=== PATIENT | female | born 1985 | race Caucasian/White ===

== ENCOUNTER 2016-09-10 07:01 | Emergency (ER) | payer OTHER ==
[~2016-09-10] VITALS: Ht 160 cm; Wt 70.3 kg
[2016-09-10 09:08] VITALS: BP 120/74
== END 2016-09-10 09:08 | disposition home or self-care (01) ==
LOC: ED 07:01
DX: K29.70 Gastritis, unspecified, without bleeding (principal); R19.7 Diarrhea, unspecified; F17.210 Nicotine dependence, cigarettes, uncomplicated; R03.0 Elevated blood-pressure reading, without diagnosis of hypertension

== ENCOUNTER 2016-10-24 01:40 | Emergency (ER) | payer OTHER ==
[2016-10-24 03:47] LABS: BASOPHIL % 0.6 % (0-2); PLATELET COUNT 325 x10^3mcL (130-400); RED CELL DISTRIBUTION WIDTH 13.9 % (11.5-14.5)
[2016-10-24 04:21] LABS: CALCIUM 12.1 mg/dL (8.5-10.1); CARBON DIOXIDE 31.7 mmol/L (21-32); CHLORIDE SERUM 100 mmol/L (98-107); CREATININE SERUM 0.9 mg/dL (0.6-1.0); GFR1 > 60 mL/min; GLUCOSE SERUM 132 mg/dL (74-106); POTASSIUM SERUM 3.2 mmol/L (3.5-5.1); SODIUM SERUM 138 mmol/L (136-145)
[2016-10-24 04:25] LABS: ALBUMIN 4.1 g/dL (3.4-5.0); ALKALINE PHOSPHATASE 85 U/L (46-116); ALT/SGPT 19 U/L (14-59); AMYLASE 91 U/L (25-115); AST/SGOT 14 U/L (15-37); BILIRUBIN TOTAL 0.53 mg/dL (0.20-1.00); LIPASE 87 IU/L (73-393)
[2016-10-24 06:29] VITALS: BP 95/55
== END 2016-10-24 06:29 | disposition home or self-care (01) ==
LOC: ED 01:40
PROVIDERS: Emergency Medicine Emergency Medical Services
DX: K21.9 Gastro-esophageal reflux disease without esophagitis (principal); K80.50 Calculus of bile duct without cholangitis or cholecystitis without obstruction; K29.71 Gastritis, unspecified, with bleeding; R19.7 Diarrhea, unspecified
CPT/HCPCS: J2270; J2405; J3490; J7030; Q0092

== ENCOUNTER 2016-12-15 12:16 | Emergency (ER) | payer OTHER ==
[~2016-12-15] VITALS: Ht 157.5 cm; Wt 63.5 kg
[2016-12-15 13:02] LABS: BASOPHIL % 0.4 % (0-2); PLATELET COUNT 370 x10^3mcL (130-400); RED CELL DISTRIBUTION WIDTH 13.6 % (11.5-14.5)
[2016-12-15 13:50] LABS: CALCIUM 11.8 mg/dL (8.5-10.1); CHLORIDE SERUM 99 mmol/L (98-107); CREATININE SERUM 0.9 mg/dL (0.6-1.0); GFR1 > 60 mL/min; GLUCOSE SERUM 159 mg/dL (74-106); POTASSIUM SERUM 3.6 mmol/L (3.5-5.1); SODIUM SERUM 135 mmol/L (136-145)
[2016-12-15 13:54] LABS: ALBUMIN 4.1 g/dL (3.4-5.0); ALKALINE PHOSPHATASE 92 U/L (46-116); ALT/SGPT 24 U/L (14-59); AMYLASE 67 U/L (25-115); AST/SGOT 18 U/L (15-37); BILIRUBIN TOTAL 0.4 mg/dL (0.20-1.00); LIPASE 64 IU/L (73-393)
[2016-12-15 13:59] LABS: TOTAL PROTEIN, SERUM 8.3 g/dL (6.4-8.2)
[2016-12-15 15:02] VITALS: BP 129/77
== END 2016-12-15 15:02 | disposition home or self-care (01) ==
LOC: ED 12:16
PROVIDERS: Emergency Medicine
DX: K52.9 Noninfective gastroenteritis and colitis, unspecified (principal); Z87.19 Personal history of other diseases of the digestive system
CPT/HCPCS: 83880; J1885; J2405; J7030

== ENCOUNTER 2016-12-16 03:04 | Emergency (ER) | payer OTHER ==
[2016-12-16 05:23] VITALS: BP 119/66
== END 2016-12-16 05:23 | disposition home or self-care (01) ==
LOC: ED 03:04
DX: R10.30 Lower abdominal pain, unspecified (principal); R11.10 Vomiting, unspecified; R19.7 Diarrhea, unspecified
CPT/HCPCS: J1885; J2405; J7030

== ENCOUNTER 2016-12-17 20:56 | Inpatient (IN) | payer OTHER ==
[~2016-12-17] VITALS: Ht 157.5 cm; Wt 65.2 kg
[2016-12-17 22:14] LABS: BASOPHIL % 0.2 % (0-2); PLATELET COUNT 344 x10^3mcL (130-400); RED CELL DISTRIBUTION WIDTH 12.9 % (11.5-14.5)
[2016-12-17 22:29] LABS: ALBUMIN 3.7 g/dL (3.4-5.0); ALKALINE PHOSPHATASE 82 U/L (46-116); ALT/SGPT 21 U/L (14-59); AMYLASE 125 U/L (25-115); AST/SGOT 14 U/L (15-37); BILIRUBIN TOTAL 0.4 mg/dL (0.20-1.00); CARBON DIOXIDE 36.2 mmol/L (21-32); CHLORIDE SERUM 96 mmol/L (98-107); CREATININE SERUM 0.9 mg/dL (0.6-1.0); GFR1 > 60 mL/min; GLUCOSE SERUM 173 mg/dL (74-106); LIPASE 83 IU/L (73-393); SODIUM SERUM 137 mmol/L (136-145); TOTAL PROTEIN, SERUM 7.4 g/dL (6.4-8.2)
[2016-12-17 22:38] LABS: CALCIUM 11.6 mg/dL (8.5-10.1)
[2016-12-17 22:43] LABS: POTASSIUM SERUM 2.3 mmol/L (3.5-5.1)
[2016-12-17 22:51] LABS: microscopic required? YES; urine erythrocyte TRACE (NEGATIVE)
[2016-12-17 23:09] LABS: AMPHETAMINE QUAL UR NONE DETECTED (NEG <=1000)
[2016-12-18 02:41] VITALS: BP 112/69
[2016-12-18 03:20] LABS: MAGNESIUM 1.6 mg/dL (1.8-2.4); PHOSPHOROUS 2.8 mg/dL (2.5-4.9)
[2016-12-18 03:28] LABS: T3 TOTAL 1.5 ng/mL
[2016-12-18 03:37] LABS: FREE T4 1.37 ng/dL (0.76-1.46); FREE THYROXINE INDEX 4.4 ug/dL (1.4-4.5); T4(THYROXINE) 12.1 ug/dL (4.7-13.3)
[2016-12-18 03:39] LABS: CHOLESTEROL/HDL RATIO 2.2
[2016-12-18 05:22] VITALS: BP 99/54
[2016-12-18 07:13] LABS: CALCIUM 10.7 mg/dL (8.5-10.1); CARBON DIOXIDE 30.6 mmol/L (21-32); CHLORIDE SERUM 104 mmol/L (98-107); CREATININE SERUM 0.8 mg/dL (0.6-1.0); GFR1 > 60 mL/min; GLUCOSE SERUM 97 mg/dL (74-106); SODIUM SERUM 143 mmol/L (136-145)
[2016-12-18 07:18] LABS: POTASSIUM SERUM 2.9 mmol/L (3.5-5.1)
[2016-12-18 08:47] VITALS: BP 125/81
[2016-12-18 11:03] LABS: CALCIUM 10.9 mg/dL (8.5-10.1); CARBON DIOXIDE 31.2 mmol/L (21-32); CHLORIDE SERUM 103 mmol/L (98-107); CREATININE SERUM 0.8 mg/dL (0.6-1.0); GFR1 > 60 mL/min; GLUCOSE SERUM 98 mg/dL (74-106); MAGNESIUM 2.3 mg/dL (1.8-2.4); SODIUM SERUM 139 mmol/L (136-145)
[2016-12-18 11:45] VITALS: BP 115/79
[2016-12-18 16:23] VITALS: BP 143/91
[2016-12-18 21:22] VITALS: BP 129/94
[2016-12-19 00:29] LABS: CALCIUM 11.5 mg/dL (8.5-10.1); CARBON DIOXIDE 31.3 mmol/L (21-32); CHLORIDE SERUM 105 mmol/L (98-107); CREATININE SERUM 0.7 mg/dL (0.6-1.0); GFR1 > 60 mL/min; GLUCOSE SERUM 121 mg/dL (74-106); POTASSIUM SERUM 3.2 mmol/L (3.5-5.1); SODIUM SERUM 141 mmol/L (136-145)
[2016-12-19 04:53] VITALS: BP 139/87
[2016-12-19 06:34] LABS: CALCIUM 10.9 mg/dL (8.5-10.1); CARBON DIOXIDE 25.3 mmol/L (21-32); CHLORIDE SERUM 106 mmol/L (98-107); CREATININE SERUM 0.7 mg/dL (0.6-1.0); GFR1 > 60 mL/min; GLUCOSE SERUM 101 mg/dL (74-106); POTASSIUM SERUM 3.2 mmol/L (3.5-5.1); SODIUM SERUM 139 mmol/L (136-145)
[2016-12-19 06:40] LABS: BASOPHIL % 0.2 % (0-2); PLATELET COUNT 298 x10^3mcL (130-400); RED CELL DISTRIBUTION WIDTH 13.5 % (11.5-14.5)
[2016-12-19 09:39] VITALS: BP 123/73
[2016-12-19 12:31] VITALS: BP 147/97
[2016-12-19 16:30] VITALS: BP 139/84
[2016-12-19 21:48] VITALS: BP 118/70
[2016-12-20 05:46] VITALS: BP 136/86
[2016-12-20 06:09] LABS: BASOPHIL % 0.4 % (0-2); PLATELET COUNT 289 x10^3mcL (130-400); RED CELL DISTRIBUTION WIDTH 13.7 % (11.5-14.5)
[2016-12-20 06:22] LABS: CALCIUM 11.2 mg/dL (8.5-10.1); CHLORIDE SERUM 99 mmol/L (98-107); CREATININE SERUM 0.9 mg/dL (0.6-1.0); GFR1 > 60 mL/min; GLUCOSE SERUM 124 mg/dL (74-106); SODIUM SERUM 140 mmol/L (136-145)
[2016-12-20 06:50] LABS: POTASSIUM SERUM 2.5 mmol/L (3.5-5.1)
[2016-12-20 10:20] VITALS: BP 148/88
[2016-12-20 14:20] VITALS: BP 115/83
[2016-12-20] MEDS ORDERED: LEVAQUIN750 MG PO (17:26)
[2016-12-20] MEDS ORDERED: COL100 PO (17:27)
[2016-12-20] MEDS ORDERED: SIMETHICONE80 MG CH (17:27)
[2016-12-20] MEDS ORDERED: ZOFI IV (17:28)
[2016-12-20] MEDS ORDERED: PROTONIX40 MG PO (17:29)
[2016-12-20 17:30] VITALS: BP 144/79
[2016-12-20] MEDS ORDERED: [UNRECOGNIZED DRUG - CODE] IM (17:30)
[2016-12-20] MEDS ORDERED: LEV250PM IV (17:56)
[2016-12-20] MEDS ORDERED: LAC PO (17:57)
[2016-12-20 18:02] VITALS: BP 115/83
[2016-12-21 12:21] LABS: calcium (part of PTHIC) 11.5 mg/dL (8.7-10.2)
== END 2016-12-20 19:43 | disposition short-term general hospital (02) | DRG 871 ==
LOC: ED 20:56 → DU 12-18 00:54 → MU 12-18 00:54 → DU 12-18 01:51 → MU 12-20 01:25 → DU 12-20 11:07
PROVIDERS: Emergency Medicine; Internal Medicine Gastroenterology; ADMIT Family Medicine
PROC: 0DB98ZX Excision of Duodenum, Via Natural or Artificial Opening Endoscopic, Diagnostic (ICD-10-PCS; principal; 2016-12-20 09:30)
DX: A41.9 Sepsis, unspecified organism (principal); N17.0 Acute kidney failure with tubular necrosis; K29.70 Gastritis, unspecified, without bleeding; E87.6 Hypokalemia; E86.0 Dehydration; F12.10 Cannabis abuse, uncomplicated; E87.8 Other disorders of electrolyte and fluid balance, not elsewhere classified; E83.52 Hypercalcemia; R80.9 Proteinuria, unspecified; N20.0 Calculus of kidney
CPT/HCPCS: 43235; 82941; 83880; 84439; 87046; 87046-59; C9113; J1200; J1610; J1885; J1956; J2250; J2270; J2310; J2405; J2765; J3010; J3475; J3480; J3490; J7030; J7050; Q0092

== ENCOUNTER 2017-05-23 06:28 | Inpatient (IN) | payer OTHER ==
[~2017-05-23] VITALS: Ht 157.5 cm; Wt 65.3 kg
[~2017-05-23 06:28] MED LIST: COL100 PO; LAC PO; LEV250PM IV; LEVAQUIN750 MG PO; PROTONIX40 MG PO; SIMETHICONE80 MG CH; ZOFI IV; [UNRECOGNIZED DRUG - CODE] IM
[2017-05-23 06:35] VITALS: Ht 157.5 cm; Wt 65.3 kg
[2017-05-23 07:37] LABS: BASOPHIL % 0.4 % (0-2)
[2017-05-23 07:38] LABS: ALKALINE PHOSPHATASE 76 U/L (46-116); ALT/SGPT 32 U/L (14-59); AST/SGOT 23 U/L (15-37); BILIRUBIN TOTAL 0.4 mg/dL (0.20-1.00); CALCIUM 11.7 mg/dL (8.5-10.1); CARBON DIOXIDE 33.5 mmol/L (21-32); CHLORIDE SERUM 96 mmol/L (98-107); CREATININE SERUM 0.9 mg/dL (0.6-1.0); GFR1 > 60 mL/min; GLUCOSE SERUM 162 mg/dL (74-106); LIPASE 82 IU/L (73-393); SODIUM SERUM 137 mmol/L (136-145); TOTAL PROTEIN, SERUM 7.8 g/dL (6.4-8.2)
[2017-05-23 07:39] LABS: PLATELET COUNT 405 x10^3mcL (130-400); RED CELL DISTRIBUTION WIDTH 15.2 % (11.5-14.5)
[2017-05-23 07:51] LABS: POTASSIUM SERUM 2.9 mmol/L (3.5-5.1)
[2017-05-23 09:27] LABS: MAGNESIUM 1.9 mg/dL (1.8-2.4); PHOSPHOROUS 2.9 mg/dL (2.5-4.9)
[2017-05-23 09:32] LABS: T3 TOTAL 1.25 ng/mL
[2017-05-23 09:34] LABS: CHOLESTEROL/HDL RATIO 2.2
[2017-05-23 10:48] LABS: FREE T4 1.35 ng/dL (0.76-1.46); FREE THYROXINE INDEX 4.3 ug/dL (1.4-4.5); T4(THYROXINE) 12.6 ug/dL (4.7-13.3)
[2017-05-23 12:55] VITALS: BP 109/65
[2017-05-23 12:57] LABS: CALCIUM 11.4 mg/dL (8.5-10.1); CARBON DIOXIDE 30.2 mmol/L (21-32); CHLORIDE SERUM 103 mmol/L (98-107); CREATININE SERUM 0.8 mg/dL (0.6-1.0); GFR1 > 60 mL/min; GLUCOSE SERUM 126 mg/dL (74-106); POTASSIUM SERUM 3.2 mmol/L (3.5-5.1); SODIUM SERUM 142 mmol/L (136-145)
[2017-05-23 12:59] VITALS: BP 122/65
[2017-05-23 14:18] VITALS: BP 107/67
[2017-05-23 17:53] VITALS: BP 136/77
[2017-05-23] MEDS ORDERED: CARAFATE1 GM PO (18:57)
[2017-05-23 20:12] VITALS: BP 140/77
[2017-05-24 04:57] VITALS: BP 125/82
[2017-05-24 06:23] LABS: CALCIUM 11.4 mg/dL (8.5-10.1); CARBON DIOXIDE 31.3 mmol/L (21-32); CHLORIDE SERUM 100 mmol/L (98-107); CREATININE SERUM 0.7 mg/dL (0.6-1.0); GFR1 > 60 mL/min; GLUCOSE SERUM 115 mg/dL (74-106); SODIUM SERUM 140 mmol/L (136-145)
[2017-05-24 06:32] LABS: POTASSIUM SERUM 2.7 mmol/L (3.5-5.1)
[2017-05-24 06:38] LABS: BASOPHIL % 0.4 % (0-2)
[2017-05-24 07:04] LABS: PLATELET COUNT 409 x10^3mcL (130-400); RED CELL DISTRIBUTION WIDTH 15.2 % (11.5-14.5)
[2017-05-24 08:55] VITALS: BP 140/99
[2017-05-24 15:10] LABS: CARBON DIOXIDE 30.6 mmol/L (21-32); CHLORIDE SERUM 101 mmol/L (98-107); CREATININE SERUM 0.8 mg/dL (0.6-1.0); GFR1 > 60 mL/min; GLUCOSE SERUM 104 mg/dL (74-106); POTASSIUM SERUM 3.4 mmol/L (3.5-5.1); SODIUM SERUM 139 mmol/L (136-145)
[2017-05-24 17:28] VITALS: BP 127/90
[2017-05-24 20:25] VITALS: BP 136/81
[2017-05-24 20:28] LABS: CALCIUM 10.9 mg/dL (8.5-10.1); CHLORIDE SERUM 100 mmol/L (98-107); CREATININE SERUM 0.8 mg/dL (0.6-1.0); GFR1 > 60 mL/min; GLUCOSE SERUM 119 mg/dL (74-106); SODIUM SERUM 141 mmol/L (136-145)
[2017-05-24 20:29] LABS: POTASSIUM SERUM 2.7 mmol/L (3.5-5.1)
[2017-05-25 02:32] LABS: CALCIUM 11.9 mg/dL (8.5-10.1); CARBON DIOXIDE 31.4 mmol/L (21-32); CHLORIDE SERUM 102 mmol/L (98-107); CREATININE SERUM 0.9 mg/dL (0.6-1.0); GFR1 > 60 mL/min; GLUCOSE SERUM 128 mg/dL (74-106); POTASSIUM SERUM 3.3 mmol/L (3.5-5.1); SODIUM SERUM 143 mmol/L (136-145)
[2017-05-25 06:13] VITALS: BP 135/89
[2017-05-25 06:56] LABS: RED CELL DISTRIBUTION WIDTH 14.4 % (11.5-14.5)
[2017-05-25 07:05] LABS: CALCIUM 11.5 mg/dL (8.5-10.1); CARBON DIOXIDE 27.1 mmol/L (21-32); CHLORIDE SERUM 102 mmol/L (98-107); CREATININE SERUM 0.7 mg/dL (0.6-1.0); GFR1 > 60 mL/min; GLUCOSE SERUM 117 mg/dL (74-106); SODIUM SERUM 140 mmol/L (136-145)
[2017-05-25 07:20] LABS: PLATELET COUNT 413 x10^3mcL (130-400)
[2017-05-25 08:08] VITALS: BP 135/93
[2017-05-25 10:57] LABS: BAND NEUTROPHIL 0 % (0-10); BASOPHIL 0 % (0-2); MONOCYTE 7 % (0-7); SEGMENTED NEUTROPHILS 87 % (37-75)
[2017-05-25 11:24] LABS: PLATELET COUNT 418 x10^3mcL (130-400); RED CELL DISTRIBUTION WIDTH 15.2 % (11.5-14.5)
[2017-05-25 11:46] LABS: BAND NEUTROPHIL 0 % (0-10); BASOPHIL 0 % (0-2); MONOCYTE 8 % (0-7); SEGMENTED NEUTROPHILS 88 % (37-75)
[2017-05-25 12:30] LABS: UA SPECIFIC GRAVITY 1.015 (1.005-1.035); microscopic required? YES; urine erythrocyte 2+ (NEGATIVE)
[2017-05-25 17:38] VITALS: BP 122/91
[2017-05-25 19:58] LABS: CALCIUM 12.1 mg/dL (8.5-10.1); CARBON DIOXIDE 31.8 mmol/L (21-32); CHLORIDE SERUM 100 mmol/L (98-107); CREATININE SERUM 0.8 mg/dL (0.6-1.0); GFR1 > 60 mL/min; GLUCOSE SERUM 132 mg/dL (74-106); POTASSIUM SERUM 3.2 mmol/L (3.5-5.1); SODIUM SERUM 137 mmol/L (136-145)
[2017-05-25 20:36] VITALS: BP 127/92
[2017-05-26 06:32] VITALS: BP 143/99
[2017-05-26 07:00] LABS: BASOPHIL % 0 % (0-2); PLATELET COUNT 405 x10^3mcL (130-400); RED CELL DISTRIBUTION WIDTH 14.8 % (11.5-14.5)
[2017-05-26 07:05] LABS: CALCIUM 11.5 mg/dL (8.5-10.1); CARBON DIOXIDE 30.6 mmol/L (21-32); CHLORIDE SERUM 101 mmol/L (98-107); CREATININE SERUM 0.7 mg/dL (0.6-1.0); GFR1 > 60 mL/min; GLUCOSE SERUM 112 mg/dL (74-106); PHOSPHOROUS 2.5 mg/dL (2.5-4.9); SODIUM SERUM 138 mmol/L (136-145)
[2017-05-26 07:16] LABS: POTASSIUM SERUM 2.9 mmol/L (3.5-5.1)
[2017-05-26 09:23] VITALS: BP 139/95
[2017-05-26 14:56] LABS: CALCIUM 11.2 mg/dL (8.5-10.1); CARBON DIOXIDE 32.4 mmol/L (21-32); CHLORIDE SERUM 100 mmol/L (98-107); CREATININE SERUM 0.7 mg/dL (0.6-1.0); GFR1 > 60 mL/min; GLUCOSE SERUM 110 mg/dL (74-106); POTASSIUM SERUM 3.2 mmol/L (3.5-5.1); SODIUM SERUM 137 mmol/L (136-145)
[2017-05-26] MEDS ORDERED: PHE25I PO (15:23)
[2017-05-26 17:31] VITALS: BP 138/91
== END 2017-05-26 20:29 | disposition left against medical advice (07) | DRG 438 ==
LOC: ED 06:28 → MU 08:08 → DU 08:08 → MU 05-24 09:59
PROVIDERS: Emergency Medicine; Family Medicine
DX: D13.6 Benign neoplasm of pancreas (principal); N17.0 Acute kidney failure with tubular necrosis; E87.5 Hyperkalemia; E87.6 Hypokalemia; Z68.27 Body mass index [BMI] 27.0-27.9, adult; F17.210 Nicotine dependence, cigarettes, uncomplicated; K26.9 Duodenal ulcer, unspecified as acute or chronic, without hemorrhage or perforation; E21.3 Hyperparathyroidism, unspecified; D47.3 Essential (hemorrhagic) thrombocythemia; F12.10 Cannabis abuse, uncomplicated; D25.9 Leiomyoma of uterus, unspecified
CPT/HCPCS: 83880; 84439; J1956; J2060; J2543; J2550; J2765; J3475; J3480; J3490; J7030; J8597; Q0092; Q0162; Q9967

== ENCOUNTER 2018-11-05 08:54 | Inpatient (IN) | payer OTHER ==
[~2018-11-05] VITALS: Ht 157.5 cm; Wt 65.8 kg
[~2018-11-05 08:54] MED LIST changes: +CARAFATE1 GM PO; +PHE25I PO
[2018-11-05 09:09] VITALS: Ht 157.5 cm; Wt 65.8 kg
--- NOTE | 2018-11-05 09:17 | NUR ---
PT BIB SELF C/C ABD PAIN STS STARTED THIS AM AWAITING FOR DR TONIE TERESA
--- NOTE | 2018-11-05 10:18 | NUR ---
DR PEACE AT BEDSIDE TO [facility]
--- NOTE | 2018-11-05 10:24 | NUR ---
E PLEASE ENTER FULL NAMES OF PIPE BOWLS PAINT TRIMMER/RN Patient data collected by (PIPE BOWLS PAINT TRIMMER):KONSTANTIN Assessment reviewed and completed by (RN):CARLOS
--- NOTE | 2018-11-05 10:39 | NUR ---
C/O ABDOMIANL PAIN MEDICATED ORDERF
--- NOTE | 2018-11-05 10:39 | NUR ---
PLEASE ENTER FULL NAMES OF CAMP DISHWASHER/RN Patient data collected by (CAMP DISHWASHER):Robert PRYOR Assessment reviewed and completed by (RN): RICKY
--- NOTE | 2018-11-05 10:52 | NUR ---
PT TAKEN TO RADIOLOGY FOR XRAY
[2018-11-05 11:06] LABS: microscopic required? YES; urine erythrocyte TRACE (NEGATIVE)
[2018-11-05 11:07] LABS: BASOPHIL % 0.2 % (0-2)
[2018-11-05 11:08] LABS: PLATELET COUNT 415 x10^3mcL (130-400); RED CELL DISTRIBUTION WIDTH 36.2 % (11.5-14.5)
[2018-11-05 11:16] LABS: CALCIUM 9.3 mg/dL (8.5-10.1); CARBON DIOXIDE 20.2 mmol/L (21-32); CHLORIDE SERUM 104 mmol/L (98-107); CREATININE SERUM 0.6 mg/dL (0.6-1.0); GFR1 > 60 mL/min; GLUCOSE SERUM 223 mg/dL (74-106); POTASSIUM SERUM 4.6 mmol/L (3.5-5.1); SODIUM SERUM 136 mmol/L (136-145)
[2018-11-05 11:27] LABS: ALBUMIN 3.9 g/dL (3.4-5.0); ALKALINE PHOSPHATASE 107 U/L (46-116); ALT/SGPT 30 U/L (14-59); AST/SGOT 26 U/L (15-37); BILIRUBIN TOTAL 0.4 mg/dL (0.20-1.00); TOTAL PROTEIN, SERUM 7.8 g/dL (6.4-8.2)
[2018-11-05 11:28] LABS: LIPASE 1823 IU/L (73-393)
[2018-11-05 11:28] LABS: AMPHETAMINE QUAL UR NONE DETECTED (See below)
[2018-11-05 12:09] LABS: rbc morphology (normal/abnorm) ABNORMAL (NORMAL); target cell (codocyte) 1+; tear drop cell (dacryocyte) 1+
--- NOTE | 2018-11-05 12:50 | NUR ---
PT ARRIVED FROM ED IN A W/C. REPORT GIVEN BY BRIAN MUÑOZ. PT IS ADMITTED WITH DX OF PANCRATITIS. WILL REMAIN NPO AT THIS TIME. RESP EVEN AND UNLABORED. LUNG SOUNDS CTA BILATERALLY. ON R/A. NO COUGH OR SOB NOTED. NORMAL S1S2 NOTED. DENIES C/P, PRESSURE, PALPITATIONS. ABDOMEN SOFT, ROUND, TENDER, NONDISTENDED. BOWEL SOUNDS ACTIVE X4 QUADS. PT DENIES AB PAIN, N/V AT THIS TIME, BUT STATES PRIOR TO BEING ADMITTED WAS NAUSEATED WITH VOMITING. SKIN CDI. NO EDEMA NOTED. IV CATH TO LAC 20G. SITE WNL. N/S LOCKED AT THIS TIME. PT EDUCATED TO ROOM AND CALL LIGHT. DENIES PAIN A THIS TIME. CALL LIGHT WITHIN REACH
[2018-11-05 12:52] VITALS: BP 134/77
--- NOTE | 2018-11-05 13:37 | NUR ---
RECEIVED ORDER FROM DR. ARRIOLA MRSA CULTURE AND NPO EXCEPT MED. ORDER NOTED AND CARRIED OUT. PT MADE AWARE.
--- NOTE | 2018-11-05 14:52 | NUR ---
MORPHINE 1 MG IVP GIVEN FOR ABDOMEN PAIN 10/03. RESP EVEN AND UNLABORED. NO DISTRESS NOTED. WILL CONTINUE TO MONITOR.
--- NOTE | 2018-11-05 15:28 | NUR ---
LEVAQUIN IVPB STARTED. PT DEINES PAIN AT THIS TIME. RESP EVEN AND UNLABORED. NO DISTRESS NOTED. PT SIGNIFICANT OTHER AT BEDSIDE.
--- NOTE | 2018-11-05 16:00 | NUR ---
RECEIVED ORDER FOR DR. ARRIOLA, SCDS. ORDER NOTED AND CARRIED OUT, PT MADE AWARE.
--- NOTE | 2018-11-05 17:01 | NUR ---
DUE MEDS GIVEN AND TOLERATED WELL. PT EDUCATED THAT SHE WILL REMAIN NPO UNTIL HER CONSULT WITH DR. GORE. RESP EVEN AND UNLABORED. NO DISTRESS NOTED. PT DENIES PAIN AT THIS TIME. CALL LIGHT WITHIN REACH.
[2018-11-05 17:24] VITALS: BP 137/72
--- NOTE | 2018-11-05 18:43 | NUR ---
PT IS AAOX4. RESP EVEN AND UNLABORED. NO DISTRESS NOTED. PT DENIES PAIN. IV CATH N/S LOCKED TO LAC. SITE WNL. PT IS MAINTAINING NPO STATUS AWAITING DR. GORE CONSULT. WILL ENDORSE ALL CARE TO NOC RN.
--- NOTE | 2018-11-05 19:30 | NUR ---
RECEIVED PT LAYING IN BED. PT IS A/OX4. SPEECH IS CLEAR. ABLE TO MAKE NEEDS KNOWN. DENIES PALACIOS. EENT FREE OF DISCHARGE. ORAL MUCOSA PINK AND MOIST. NO JVD NOTED. BREATHING IS E/U ON RA. LUNGS SOUND CLEAR BILAT. SYMMETRICAL CHEST EXPANSION NOTED. S1/S2 HEART SOUNDS AUSCULTATED. CHEST WALL EQUAL AND SYMMETRICAL. DENIES ANY CP. PALAPBLE PULSES X4 EXTREMITIES. SKIN IS WARM AND DRY. NO EDEMA NOTED CAP REFILL < [address] IV [address], SALINE LOCKED. GENERALIZED WEAKNESS. NO JOINT SWELLING/DEFORMITY NOTED. ACTIVE FULL ROM X4 EXTREMITIES. PT IS NPO AT THIS TIME. DENIES ANY N/V. ABD IS SOFT, ROUND, TENDER TO PALPATION. BOWEL SOUNDS ACTIVE X4 QUADRANTS. NO BM NOTED. PT C/O ABD "DISCOMFORT". PT VOIDS FREELY. NO LABIAL EDEMA OR VAGINAL DISCHARGE NOTED. SKIN IS INTACT. PT ABLE TO REPOSITION SELF INDEPENDENTLY. PT IS CALM AND COOPERATIVE. BED IN LOW POSITION. CALL LIGHT IN REACH. WILL CONT TO MONITOR
--- NOTE | 2018-11-05 20:04 | NUR ---
PT C/O ACHING ABD PAIN RATED 5/10. PT MEDICATED WITH MORPHINE PER EMAR
[2018-11-05 20:30] VITALS: BP 141/77
--- NOTE | 2018-11-05 21:35 | NUR ---
RESUMED CARE OF PT. PT RESTING IN BED. RR EVEN AND UNLABORED. IN NO ACUTE DISTRESS. CALL LIGHT WITHIN REACH. BED IN LOWEST POSITION. WILL CONTINUE TO MONITOR.
--- NOTE | 2018-11-05 21:40 | NUR ---
REPORT GIVEN TO YU TORRES FOR CONTINUITY OF CARE. ENDORSING ALL CARE
--- NOTE | 2018-11-06 00:47 | NUR ---
PT IN BED. NO ACUTE DISTRESS NOTED. CALL LIGHT WITHIN REACH. BED IN LOWEST POSITION. WILL CONTINUE TO MONITOR.
[2018-11-06 06:08] VITALS: BP 136/81
[2018-11-06 06:12] LABS: BASOPHIL % 0.1 % (0-2)
[2018-11-06 06:23] LABS: CALCIUM 9.9 mg/dL (8.5-10.1); CARBON DIOXIDE 22.4 mmol/L (21-32); CHLORIDE SERUM 104 mmol/L (98-107); CREATININE SERUM 0.6 mg/dL (0.6-1.0); GFR1 > 60 mL/min; GLUCOSE SERUM 135 mg/dL (74-106); POTASSIUM SERUM 3.9 mmol/L (3.5-5.1); SODIUM SERUM 136 mmol/L (136-145)
[2018-11-06 06:35] LABS: PLATELET COUNT 407 x10^3mcL (130-400); RED CELL DISTRIBUTION WIDTH 36.9 % (11.5-14.5)
--- NOTE | 2018-11-06 07:45 | NUR ---
RECEIVED PT IN BED. ASSESSED AND DOCUMENTED. DENIES PAIN THIS TIME. SAFTEY PRECAUTIONS ARE IN PLACE. WILL MONITOR.
[2018-11-06 10:00] VITALS: BP 153/81
[2018-11-06 11:35] LABS: rbc morphology (normal/abnorm) ABNORMAL (NORMAL)
--- NOTE | 2018-11-06 13:30 | NUR ---
DISCHARGE INSTRUCTIONS GIVEN. PB SIGNED AND SENT WITH PT. IV REMOVED AND DRESSING APPLIED. PT DENIES ANY PAIN. SENIOR SUPPORT ENGINEER WHEELED PT DOWN TO LOBBY ACCOMPANIED WITH FAMILY. DC HOME.
[2018-11-06 14:16] VITALS: BP 153/81
== END 2018-11-06 14:52 | disposition home or self-care (01) | DRG 440 ==
LOC: ED 08:54 → MU 11:57
PROVIDERS: Emergency Medicine; ADMIT Internal Medicine
DX: K85.90 Acute pancreatitis without necrosis or infection, unspecified (principal); F12.20 Cannabis dependence, uncomplicated; E05.90 Thyrotoxicosis, unspecified without thyrotoxic crisis or storm; K86.89 Other specified diseases of pancreas; R73.9 Hyperglycemia, unspecified; K27.9 Peptic ulcer, site unspecified, unspecified as acute or chronic, without hemorrhage or perforation; Z68.26 Body mass index [BMI] 26.0-26.9, adult; F17.210 Nicotine dependence, cigarettes, uncomplicated; D72.829 Elevated white blood cell count, unspecified; Z83.3 Family history of diabetes mellitus; K86.1 Other chronic pancreatitis
CPT/HCPCS: 99406; G0378; J1630; J1956; J2060; J2270; J7030; J7040

== ENCOUNTER 2019-03-31 14:21 | Inpatient (IN) | payer OTHER ==
[~2019-03-31] VITALS: Ht 157.5 cm; Wt 71.7 kg
[2019-03-31 14:45] VITALS: Ht 157.5 cm; Wt 71.7 kg
[2019-03-31 15:16] LABS: CALCIUM 9.2 mg/dL (8.5-10.1); CARBON DIOXIDE 26.6 mmol/L (21-32); CHLORIDE SERUM 102 mmol/L (98-107); CREATININE SERUM 0.7 mg/dL (0.6-1.0); GFR1 > 60 mL/min; GLUCOSE SERUM 205 mg/dL (74-106); SODIUM SERUM 135 mmol/L (136-145)
[2019-03-31 15:18] LABS: BASOPHIL % 0.2 % (0-2); PLATELET COUNT 420 x10^3mcL (130-400); RED CELL DISTRIBUTION WIDTH 14.1 % (11.5-14.5)
[2019-03-31 15:21] LABS: ALBUMIN 3.3 g/dL (3.4-5.0); ALKALINE PHOSPHATASE 91 U/L (46-116); ALT/SGPT 22 U/L (14-59); AMYLASE 153 U/L (25-115); AST/SGOT 13 U/L (15-37); BILIRUBIN TOTAL 0.2 mg/dL (0.20-1.00); LIPASE 1874 IU/L (73-393)
[2019-03-31 17:53] VITALS: BP 124/79
[2019-03-31 17:59] VITALS: BP 124/79
[2019-03-31 20:55] VITALS: BP 128/80
[2019-04-01 06:27] VITALS: BP 134/83
[2019-04-01 08:21] VITALS: BP 135/81
[2019-04-01 11:45] LABS: BASOPHIL % 0.3 % (0-2); PLATELET COUNT 368 x10^3mcL (130-400); RED CELL DISTRIBUTION WIDTH 13.9 % (11.5-14.5)
[2019-04-01 12:04] VITALS: BP 146/86
[2019-04-01 16:41] VITALS: BP 128/79
[2019-04-01 21:27] VITALS: BP 134/79
[2019-04-02 06:06] VITALS: BP 127/77
[2019-04-02 06:57] LABS: BASOPHIL % 0.2 % (0-2); PLATELET COUNT 356 x10^3mcL (130-400); RED CELL DISTRIBUTION WIDTH 13.5 % (11.5-14.5)
[2019-04-02 07:06] LABS: ALKALINE PHOSPHATASE 96 U/L (46-116); ALT/SGPT 38 U/L (14-59); AST/SGOT 17 U/L (15-37); BILIRUBIN TOTAL 0.2 mg/dL (0.20-1.00); CALCIUM 9.4 mg/dL (8.5-10.1); CARBON DIOXIDE 25.6 mmol/L (21-32); CHLORIDE SERUM 104 mmol/L (98-107); CREATININE SERUM 0.5 mg/dL (0.6-1.0); GFR1 > 60 mL/min; GLUCOSE SERUM 108 mg/dL (74-106); SODIUM SERUM 137 mmol/L (136-145); TOTAL PROTEIN, SERUM 6.6 g/dL (6.4-8.2)
[2019-04-02 07:08] LABS: ALBUMIN 2.9 g/dL (3.4-5.0)
[2019-04-02 07:25] VITALS: BP 116/76
[2019-04-02 08:44] LABS: LIPASE 2287 IU/L (73-393)
[2019-04-02 11:13] VITALS: BP 116/76
[2019-04-02 11:45] VITALS: BP 98/57
== END 2019-04-02 14:01 | disposition home or self-care (01) | DRG 440 ==
LOC: ED 14:21 → MU 16:37
PROVIDERS: Specialist; ADMIT Internal Medicine
DX: K85.90 Acute pancreatitis without necrosis or infection, unspecified (principal); K21.9 Gastro-esophageal reflux disease without esophagitis; K86.1 Other chronic pancreatitis; F17.210 Nicotine dependence, cigarettes, uncomplicated; F12.90 Cannabis use, unspecified, uncomplicated; D72.829 Elevated white blood cell count, unspecified; Z71.6 Tobacco abuse counseling; Z83.3 Family history of diabetes mellitus; Z90.49 Acquired absence of other specified parts of digestive tract; Z80.9 Family history of malignant neoplasm, unspecified; Z87.11 Personal history of peptic ulcer disease; Z79.899 Other long term (current) drug therapy
CPT/HCPCS: 82962; 99406; C9113; G0378; J1885; J1956; J2550; J7030; J7120